=== PATIENT | female | born 1960 | race Caucasian/White ===

== ENCOUNTER 2016-07-04 07:30 | Day surgery (SDC) | payer OTHER ==
[~2016-07-04] VITALS: Ht 170.2 cm; Wt 80.0 kg
[~2016-07-04 07:30] MED LIST: ALBU18HF INH; CALC-1051 PO; DULO60CA42 PO; FLUT12AE8 IH; Sodium Chloride LOK Flush 10 mL Syringe IV PRN; fentaNYL-PF 50 mCg/mL 2 mL Inj IVPUSH PRN
[2016-07-04 07:46] VITALS: BP 117/69; PULSE 78; RESP 14; O2SAT 94
[2016-07-04] MEDS ORDERED: 0.9% Sodium Chloride 1,000 ML ONE (08:01)
[2016-07-04 08:54] VITALS: BP 96/62; PULSE 77; RESP 16; O2SAT 92
--- NOTE | 2016-07-04 09:01 | ENDO ---
[address] [address] ENDOSCOPY PROCEDURE PATIENT: JANNA VALDEZ : 1960 MR#: [id number] ADMIT: 07/04/2016 JOB ID: [id number] DATE: 07/04/2016 PROCEDURE: Colonoscopy. PREOPERATIVE DIAGNOSIS(ES): History of colon polyps. POSTOPERATIVE DIAGNOSIS(ES): Diverticulosis, moderate in the sigmoid and descending colon. ANESTHESIA: 1. Fentanyl 100 mcg. 2. Versed 4 mg IV administered. DESCRIPTION OF PROCEDURE: After the risks and benefits were explained to the patient, informed consent was obtained. After anesthesia administered, colonoscope was inserted from the rectum to the cecum. Mucosa carefully examined. Prep of the patient was excellent. After the procedure was done, the scope was withdrawn and the procedure terminated. FINDINGS: Upon inspection of the anus, no masses, hemorrhoids, ulcers, or fissures that were seen. Throughout the entire examination, there was moderate sigmoid and descending colon diverticulosis, nonbleeding. No polyps or masses were seen. Retroflexion was normal. IMPRESSIONS: Moderate sigmoid and descending colon diverticulosis. RECOMMENDATIONS: 1. High-fiber diet. 2. Repeat colonoscopy in five years for colorectal cancer screening given history of colon polyps.
[2016-07-04 09:03] VITALS: BP 98/69; PULSE 73; RESP 16; O2SAT 95
[2016-07-04 09:12] VITALS: BP 103/78; PULSE 69; RESP 16; O2SAT 97
--- NOTE | 2016-07-07 10:44 | PATH ---
SURGICAL PATHOLOGY Attending Physician:Jossue Potts MD CASE STATUS: Signed Out PATIENT NAME: JANNA VALDEZ PID: [id number] : 1960 DATE COLLECTED:07/04/2016 16:51 SPECIMEN: Colon, Biopsy CLINICAL HISTORY: A: SIGMOID POLYP FINAL DIAGNOSIS: 1.SIGMOID COLON POLYP: HYPERPLASTIC POLYP. ICD10 CODE D12.6 GROSS DESCRIPTION: The specimen is received in one formalin filled container labeled with the patient's name, sublabeled "sigmoid polyp" and consists of a 0.3 x 0.2 x 0.2 CM portion of tissue which is entirely submitted in one cassette. 07/04/2016 DAC MICRO DESCRIPTION: See diagnosis. ICD-9 CODES: CPT CODES: 1: 00204 Electronically Signed Out Orion Bill MD [facility], [place] [address] Technical component performed at [facility], [facility] [address], [place], [address]
== END 2016-07-04 23:59 | disposition home or self-care (01) ==
LOC: END 07:30
PROVIDERS: ATTEND Internal Medicine Gastroenterology
DX: Z12.11 Encounter for screening for malignant neoplasm of colon (principal); Z86.010 Personal history of colon polyps; K63.5 Polyp of colon; K57.30 Diverticulosis of large intestine without perforation or abscess without bleeding; J45.909 Unspecified asthma, uncomplicated
CPT/HCPCS: 45380; J2250; J7030